=== PATIENT | female | born 1970 | race African-American/Black ===

== ENCOUNTER 2021-01-11 08:49 | Emergency (ER) | payer MEDICAID ==
[~2021-01-11] VITALS: Ht 162.6 cm; Wt 89.0 kg
--- NOTE | 2021-01-11 09:43 | NUR ---
PT AMBULATED TO THE RESTROOM WITH A STEADY GAIT. SON IS SAFE AT THE BEDSIDE.
--- NOTE | 2021-01-11 10:19 | NUR ---
PT AMBULATED TO THE RESTROOM WITH A STEADY GAIT. SON IS SAFE AT THE BEDSIDE.
--- NOTE | 2021-01-11 10:33 | NUR ---
HTN IS PERSISTENT NEARLY 1 HOUR POST MED ADMINISTRATION. ERP IS AWARE, AND I WILL AWAIT FURTHER PLAN OF CARE.
[2021-01-11] MEDS ORDERED: METOPROLOL SUCCINATE 50 MG TAB.ER.24H PO STA (10:40)
--- NOTE | 2021-01-11 10:44 | NUR ---
I HAVE CONTACTED PHARMACY VIA PHONE TO OBTAIN BETA DENISE.
[2021-01-11 11:45] VITALS: BP 155/90
== END 2021-01-11 11:47 | disposition home or self-care (01) ==
LOC: ED 10:43
DX: I10 Essential (primary) hypertension (principal)
CPT/HCPCS: 93005; 99283